=== PATIENT | female | born 1955 | race Caucasian/White ===

== ENCOUNTER 2024-02-08 08:50 | Emergency (ER) | payer MEDICARE, OTHER, SELFPAY ==
[2024-02-08 09:01] VITALS: BP 123/97
[2024-02-08 09:10] VITALS: BP 144/88
--- NOTE | 2024-02-08 09:19 | ED.GENMED ---
History of Present Illness
General
Chief Complaint: Heart Rate Problem
Time Seen by Provider: 02/08/24 09:06
Travel History
Have you had any contact with someone who has COVID-19?: No
Do you have any symptoms of coronavirus? Fever > 100 degrees, chills, cough, shortness of breath, sore throat, loss of taste or smell, muscle aches, or headache?: No
History of Present Illness
History of Present Illness:
68-year-old female with history of paroxysmal atrial fibrillation, hypertension, hyperlipidemia, mitral regurgitation, [id number] diabetes presents to the emergency department for evaluation of palpitations beginning last night and
persisted through to this morning. She developed mild chest pressure and shortness of breath prompted her to come to the emergency department today. She wears an Apple Watch that notified her she is in atrial fibrillation. She does note having
frequent heart palpitations that are quite short-lived, past bout of A-fib was greater than 2 years ago. She is not currently anticoagulated. No recent fevers or chills. Currently undergoing treatment for lumbar degenerative disc disease and
received an epidural injection last week.
Past History
Past History
ED Past Medical History: Asthma, GERD and Psychiatric (depr)
ED Past Surgical History: Other (knee)
Social History
Tobacco: Non-smoker
Personal:
Living: with family
Employment: Employed
Review of Systems
Review of Systems
Allergies reviewed?: Yes
All Other Systems: ROS reviewed and negative except as documented in HPI and ROS
Phy Exam
Physical Exam
Physical Exam:
GEN: Well appearing, NAD, WDWN
Eyes: PERRLA, EOMs intact, no scleral icterus
HENT: NCAT, oral mucosa moist
Lungs: CTAB, no wheezes, rales, rhonchi, normal chest wall excursion
Cardiac: R tachycardic and irregular, no obvious murmur
Neuro: AO x 3
MSK: No gross deformity or ecchymosis. No edema. No digital clubbing
Skin: No rashes, petechiae. Normal color, no pallor or jaundice.
Psych: Calm, cooperative, proper hygiene
Course
Orders/Labs/Results
Orders:
Orders
02/08/24 08:53
EKG [Electrocardiogram (*1)] Urgent
Reason for Study: Palpitations
02/08/24 08:54
EKG- Treatment ONCE
02/08/24 09:15
0.9% Sodium Chloride 1000 ml [Nss] 1,000 ml IV BOLUS
Diltiazem 125 mg/125 ml Nss [Cardizem] 125 mg in 125 ml IV PER PROTOCOL
Initial dose in mg/hr, then titrate:: 5
Titrate to keep:: Heart rate 80-100 bpm
Titrate by mg/hr:: 5 mg/hr
Frequency of titrations (minutes):: 15
Maximum dose in mg/hr:: 15
Diltiazem HCl [Cardizem] 20 mg IV NOW STA
02/08/24 09:16
CR Chest Portable - 1 View Urgent
Comment:
Reason For Exam: SOB
Reason Study Needs to be Portable: Other
02/08/24 09:30
Complete Blood Count/With Diff Urgent
Comprehensive Metabolic Panel Urgent
Magnesium Urgent
TSH Urgent
Comment: ADD ON
02/08/24 09:54
Magnesium Sulfate 2 Gram/50 ml [Magnesium Sulfate] 2 gram in 50 ml IV NOW
02/08/24 11:00
Diltiazem [Cardizem] 30 mg PO NOW STA
02/08/24 11:10
Add On- LAB Urgent
Tests Added?: TSH
Abnormal Lab Results
02/08/24
09:30
RDW 15.9 H %
(11.5-14.5)
MPV 11.2 H fL
(7.4-10.4)
Absolute Monos (auto) 0.7 H 10^3/uL
(0.1-0.6)
Chloride 108 H mmol/L
(98-107)
BUN 25 H mg/dl
(7-17)
Glucose 115 H mg/dl
(70-99)
02/08/24 09:30
02/08/24 09:30
Vital Signs
Initial and Last Documented VS:
Initial Vital Signs
Temp Pulse Resp BP Pulse Ox
97.9 F 138 20 123/97 97
02/08/24 09:01 02/08/24 09:01 02/08/24 09:01 02/08/24 09:01 02/08/24 09:01
Last Documented Vital Signs
Temp Pulse Resp BP Pulse Ox
97.9 F 74 16 112/75 97
02/08/24 09:01 02/08/24 12:45 02/08/24 12:45 02/08/24 12:10 02/08/24 12:45
MDM/Problems Addressed
MDM/Problems Addressed:
Patient's rapid atrial fibrillation was well-controlled with IV diltiazem. She was maintained on the diltiazem infusion for several hours without converting to normal sinus rhythm. She was given an oral dose of short acting diltiazem in the hopes
that this would provide a rate control bridge until she can start controlled-release diltiazem later today. She has no clinical signs or symptoms of heart failure or acute coronary syndrome. Patient will be managed with rate control
anticoagulants. She did epidural to the lumbar spine earlier in the week however this is more than 48 hours thus I feel it is prudent to start this patient on anticoagulants. Advise close cardiology follow-up
Comment
Comment:
Initial EKG independently interpreted by me shows a rapid atrial fibrillation at a rate of 132, QTc of 429
*Critical Care Note
Total Time (30-74mins, 75-104mins- exclusive of procedures): Not Applicable
ED Attending Note
-
Portions of this chart may have been created with voice recognition software.� Occasional wrong word or��sound alike� substitutions may have occurred due to the inherent limitations of voice recognition software.
Discharge Plan
Departure
Patient Disposition: Home (Routine Discharge)
Date of Disposition: 02/08/24
Time of Disposition: 12:42
Patient with high blood pressure during this ER visit?: No
Discharge Problem:
Atrial fibrillation with RVR
Instructions: Atrial Fibrillation (DC), Apixaban
Prescriptions:
New
diltiazem HCl 180 mg capsule,extended release 24 hr
180 mg PO DAILY Qty: 30 0RF
Eliquis 5 mg tablet
5 mg PO BID Qty: 60 0RF
No Action
atorvastatin 40 MG tablet
40 mg PO DAILY
aspirin 81 MG tablet,delayed release (DR/EC)
81 mg PO DAILY
lisinopril 10 MG tablet
10 mg PO DAILY
omeprazole 20 MG capsule,delayed release(DR/EC)
20 mg PO DAILY
fluticasone propionate [Flovent HFA] 1 PUFF HFA aerosol inhaler
1 puff inhalation R BID PRN (Reason: difficulty breathing)
escitalopram oxalate 10 MG tablet
10 mg PO DAILY
levalbuterol HCl 1.25 MG/3 ML solution for nebulization
1.25 mg IH Q8H PRN (Reason: difficulty breathing)
prednisone 50 mg tablet
50 mg PO DAILY Qty: 4 0RF
Referrals:
Peterson Pickard DO [Active] -
Kevon Mays DO [Family Provider] -
Activity Restrictions/Additional Instructions:
Begin both the Eliquis and the diltiazem tonight
Follow up with your cardioglist within 1-2 weeks
Interventions
Interventions:
*Risk Screen - Suicide Last Done: 02/08/24 09:33
*General Assessment Last Done: 02/08/24 09:33
*Neglect/Abuse Screening Last Done: 02/08/24 09:33
ED- Fall Risk Assessment Last Done: 02/08/24 13:03
*ED COVID-19 Vaccine History Last Done: 02/08/24 09:01
*Nursing Disposition Last Done: 02/08/24 13:03
ED- Cardiac Assessment Last Done: 02/08/24 09:33
ED- Pulmonary Assessment Last Done: 02/08/24 09:33
Discharge Date and Time
Discharge Date/Time: 02/08/24 13:05
Print Language: NEPALI
[2024-02-08] MEDS: CARDIZEM 20 MG IV (09:24)
[2024-02-08] MEDS: CARDIZEM 125 IV (09:24)
[2024-02-08] MEDS: NSS 1000 IV (09:25)
[2024-02-08 09:33] VITALS: BMI 36.7
[2024-02-08 09:39] LABS: % Basophils 0.5 % (0-2); % Eosinophils 2.1 % (0-6); % Immature Granulocytes 0.4 % (0-0.5); % Lymphocytes 31.1 % (20.5-51.1); % Monocytes 8.8 % (1.7-9.3); % Neutrophils 57.1 % (42.2-75.2); Absolute Eosinophils 0.2 10^3/uL (0-0.7); Absolute Lymphocytes 2.6 10^3/uL (1.2-3.4); Absolute Monocytes 0.7 10^3/uL (0.1-0.6); Absolute Neutrophils 4.8 10^3/uL (1.4-6.5); Hemoglobin 13.4 g/dL (12.0-16.0); Mean Corp Hgb Conc. 33.5 g/dL (33.0-37.0); Mean Corpuscular Hgb 27.7 pg (27.0-31.0); Mean Corpuscular Volume 82.6 fL (81.0-99.0); Mean Platelet Volume 11.2 fL (7.4-10.4); Nucleated Red Blood Cells % 0 %; Platelet Count 258 10^3/uL (130-400); Red Blood Cell Count 4.84 10^6/uL (4.20-5.40); Red Cell Dist. Width 15.9 % (11.5-14.5); White Blood Cell Count 8.4 10^3/uL (4.8-10.8)
[2024-02-08 09:51] LABS: ALT (SGPT) 25 U/L (0-35); AST (SGOT) 17 U/L (14-36); Albumin 4.1 g/dl (3.5-5.0); Alkaline Phosphatase 63 U/L (38-126); Blood Urea Nitrogen 25 mg/dl (7-17); Calcium 9.5 mg/dl (8.4-10.2); Carbon Dioxide 27 mmol/L (22-30); Chloride 108 mmol/L (98-107); Estimated Creatinine Clearance 68 ml/min; Glucose 115 mg/dl (70-99); Magnesium 1.8 mg/dl (1.6-2.3); Potassium 4.1 mmol/L (3.5-5.1); Sodium 143 mmol/L (135-145); Total Bilirubin 0.4 mg/dl (0.2-1.3); Total Protein 6.5 g/dl (6.3-8.2); eGFR > 60.00
[2024-02-08] MEDS: MAGNESIUM SULFATE 50 IV (10:02)
[2024-02-08] MEDS: CARDIZEM 30 MG PO (11:07)
[2024-02-08 12:10] VITALS: BP 112/75
[2024-02-08 12:35] LABS: TSH 3.41 uIU/ml (0.47-4.68)
== END 2024-02-08 13:05 | disposition home or self-care (01) ==
LOC: EMR 08:50
PROVIDERS: Physician Assistant; EMERGENCY PHYSICIAN Emergency Medicine; FAMILY PHYSICIAN Family Medicine
DX: I48.0 Paroxysmal atrial fibrillation (principal); I10 Essential (primary) hypertension; E78.5 Hyperlipidemia, unspecified; I34.0 Nonrheumatic mitral (valve) insufficiency; E11.9 Type 2 diabetes mellitus without complications; K21.9 Gastro-esophageal reflux disease without esophagitis; J45.909 Unspecified asthma, uncomplicated; M51.36 Other intervertebral disc degeneration, lumbar region; Z79.01 Long term (current) use of anticoagulants
CPT/HCPCS: 99284; 96374; 96375; 96361; 71045; 80053; 83735; 84443; 85025; 93005

== ENCOUNTER → 2024-02-20 10:01 | Outpatient (REF) | payer MEDICARE, OTHER, SELFPAY | LOC: RCS 10:01 | PROVIDERS: ATTENDING PHYSICIAN Internal Medicine Cardiovascular Disease; FAMILY PHYSICIAN Family Medicine | DX: I48.0 Paroxysmal atrial fibrillation (principal) | CPT/HCPCS: 93005 ==

== ENCOUNTER → 2024-04-10 11:06 | Outpatient (REF) | payer MEDICARE, OTHER, SELFPAY | LOC: HWRCS 11:06 | PROVIDERS: ATTENDING PHYSICIAN Internal Medicine Cardiovascular Disease; FAMILY PHYSICIAN Family Medicine | DX: I34.0 Nonrheumatic mitral (valve) insufficiency (principal) | CPT/HCPCS: 93306 ==

== ENCOUNTER 2024-05-04 06:04 | Day surgery (SDC) | payer MEDICARE, OTHER, SELFPAY ==
[2024-05-04] VITALS (22 sets, daily range): BP systolic 99–117; BP diastolic 57–78; BMI 34.2
[2024-05-04 06:50] LABS: Glucose - Point of Care 119 mg/dl (70-99)
[2024-05-04 09:30] LABS: ACT-LR - POC 332 Seconds (116-155)
[2024-05-04 09:50] LABS: ACT-LR - POC 303 Seconds (116-155)
[2024-05-04 10:11] LABS: ACT-LR - POC 382 Seconds (116-155)
[2024-05-04 10:42] LABS: ACT-LR - POC 321 Seconds (116-155)
--- NOTE | 2024-05-04 10:53 | ITS.CL.ABL ---
Farm Equipment Service Technician - Ablation
Ablation
Procedure Report:
AFIB ablation:
Ms. Loo is a very pleasant 68 yr old woman with symptomatic paroxysmal AF and atrial flutters failed DCCV and diltiazem, Carvedilol presented today to the EP lab for atrial fibrillation ablation.
Date of the Procedure:
05/04/2024
Indications:
Paroxysmal atrial fibrillation and atrial flutter
Pre-Operative Diagnosis:
Paroxysmal atrial fibrillation and atrial flutter
Post-Operative Diagnosis:
Paroxysmal atrial fibrillation and atrial flutter
Procedure Performed:
Atrial fibrillation ablation with Pulsed-Field approach for pulmonary vein isolation
Posterior wall isolation
Atypical atrial flutter, roof dependent with roofline formation
Performing Physician:
Bertin Nash MD
Assistants:
EP staff
Anesthesia:
See anesthesia records
Detailed Description of the Procedure:
Written informed consent was obtained from the patient after a full explanation of the risks and benefits of the procedure including the risks of sedation and anesthesia.
The patient was brought to the electrophysiology laboratory in stable condition in fasting state. Continuous electrocardiographic and hemodynamic monitoring was initiated.
The initial rhythm was normal sinus rhythm
Transesophageal echocardiogram was done by Dr. Corey. Please see separate report
The procedure site was meticulously prepared with surgical scrub and allowed to dry with no pooling. Sterile draping was applied to cover the procedure site. The image intensifier was draped with sterile bag and positioned over the patient. After
infusion of local anesthetic, vascular access was obtained under ultrasound guidance and sheaths were placed over guide wire as detailed below.
Sheath and Catheter Placement:
The following catheters / sheaths were placed
Sheaths:
��������� 15Fr steerable sheath (FlexCath Cross�, [employer]) in right femoral vein in right femoral vein
��������� 9Fr in right femoral vein
��������� 7Fr in right femoral vein
Catheters:
��������� EMILY HD Grid mapping catheter � at locations of RA, LA
��������� PulseSelect� PFA catheter
��������� ICE catheter -AcuNav - at locations of RA, SVC, and RV.
��������� Decapolar Bard catheter in RA and CS
Intracardiac ECHO:
An 8-Slovak AcuNav intracardiac ECHO (ICE) probe was advanced through the 9-Slovak sheath in the right femoral vein into the right atrium under fluoroscopic and ICE ultrasound image guidance and a baseline ECHO study was performed. The left atrial
size was dilated. There was moderate tricuspid regurgitation. The aortic valve was grossly normal. There was normal left ventricular systolic functions. There is no pericardial effusion. Of note there is double atrial septum identified. The atrial
chambers but rotated. All the four veins were identified and has flow identified.
During the procedure, ICE was used for monitoring of complications, guidance of trans-septal puncture, monitor the catheter position and tracking ablation lesions. No change in the pericardial space noted throughout the procedure.
Trans-septal Puncture:
Heparin was initiated and infused to maintain appropriate ACT. A J-tipped guidewire was advanced through the 8-Slovak sheath in the right femoral vein into the superior vena cava under fluoroscopic and ICE guidance. The 8-Slovak sheath was exchanged
for a FlexCath Cross sheath which was advanced into the superior vena cava. An MyClean transseptal access system was utilized to perform the trans-septal puncture. The apparatus was withdrawn until it was in contact with the fossa ovalis. The
position was adjusted based on fluoroscopy and ultrasound images from ICE. Under fluoroscopic, hemodynamic and ICE ultrasound guidance, left atrium was cannulated by advancing the needle. Once atrial septum was cannulated, the needle was pulled back
and a guide wire was advanced through the needle into the left atrium. The guide wire was advanced into the left superior pulmonary vein. Both the sheath and the dilator was advanced into the left atrium. The dilator with the needle was withdrawn.
Blood was aspirated from the FlexCath cross sheath and arterial blood confirmed. The sheath was flushed. Saline injection noted into the left atrium on ICE. The mapping catheter was advanced in the Agilis sheath into the left pulmonary vein. Left
atrial pressure was measured.
3D Electroanatomic Mapping:
Using the HD Grid catheter advanced through sheath into the left atrium, an electroanatomic map (EAM) of the left atrium was created using [employer] EMILY mapping system. The map was used for localization of catheter position and tacking of ablation
lesions. The EAM of the left atrium showed 4 pulmonary veins with two left sided and two right sided veins electrically connected to the body the LA. The posterior and anterior haro had some healthy areas with patchy scar all over the LA.
The LA was dilated in size.
Following the EAM, preparation were made for ablation. The neuromuscular paralysis was reversed.
Ablation:
Ablation # 1: Pulmonary vein Isolation:
Using PulseSelect� pulsed field ablation system, pulmonary vein isolation was achieved. First the ablation catheter was placed in the LSPV and ostial ablation lesions were performed in a counter clock cornejo approach all around the PV ostium
circumferentially. Then the catheter was placed on the antral location and multiple ablation lesions were placed circumferentially on the antrum of the vein.
In the similar fashion, the LIPV were isolated.
Then the catheter was moved to right sided veins. The ostial and antral ablations were placed as noted above.
Ablation #2: Atypical atrial flutter ablation.
With pulmonary vein isolated, patient spontaneously went into atrial flutter. Patient is atrial flutter was 250 ms. The right atrial signal was later than the left atrium. The left atrial signal was noted to be in the posterior wall and the anterior
wall.
Using the pulseselect pulsed field ablation, a series of ablations were placed on the roofline. The flutter terminated into normal sinus rhythm.
Ablation # 3: Posterior wall isolation:
Patient had recurrent atrial fibrillation. The veins were mapped and had no signal. Using the pulsed field ablation catheter, the catheter was placed on the posterior wall and moved around the posterior wall to have adequate contact and ablations
were placed isolating the posterior wall.
Post ablation Electroanatomic mapping:
Once ablation was completed, the EAM of the LA was done again in sinus rhythm with excellent demarcation of LA myocardium and isolated antral tissue. There was dissociated signals were noted in the veins as well.
EPS and Confirmation of the PVI and bidirectional block:
Following achievement of entrance block at the pulmonary veins, pacing from the HD catheter in each of the four veins at 10 milliamps for 2 milliseconds showed entrance and exit block. All PVI were rechecked at the end of the case and remained
isolated with dissociated and local capture with pacing. Entrance and exit block were demonstrated in all veins.
Procedure End
ICE study was done again that showed no epicardial accumulation. No complications noted.
Following the completion of the EP study, catheters were removed. Protamine 30 mg was given at the end of the procedure and ACT was checked repeatedly. The sheaths were removed and hemostasis achieved with manual compression after acceptable ACT is
achieved.
Left atrial Pressure:
Pre-Procedure: Mean LA pressure was 5mmHg
Post-Procedure: Mean LA pressure was 5mmHg
Post-Procedure: Mean LR pressure was 2mmHg
Estimated Blood loss:
<10 cc
Specimens Removed:
None.
Implants / Devices:
None
Urine output:
None
Packs / Drains/ Tubes:
None
Instrument / Sponge Count Correct:
Yes
Complications of the Procedure:
None
Condition of Patient at Time of Transfer:
Hemodynamically stable with no neurological or vascular compromise.
Summary:
Successful atrial fibrillation ablation with Pulsed Field approach for pulmonary vein isolation, posterior wall isolation, roofline flutter ablation
Figures from the Procedure:
Figure 1: The electroanatomic mapping (EAM) of the left atrium with bipolar voltage (purple indicates normal electrical activity with grover as no myocardial muscle electric activity indicating a line of block or scar.
[2024-05-04 11:29] LABS: Glucose - Point of Care 142 mg/dl (70-99)
[2024-05-04] MEDS: ANESTHETIC LOZENGE 1 LOZENGE PO (12:06)
--- NOTE | 2024-05-04 14:53 | PTCARENOTE ---
Dr Nash at pt bedside speaking to pt.
--- NOTE | 2024-05-04 15:20 | W.PN.UPDATE ---
Update Note
Progress Note Update
Pt seen post PFA. Preprocedural MAURO completed with no thrombus noted. Right FV with manual compression, no ht/bleeding. OOB ambulating. Post EKG NSR 70s, no acute changes. Resume eliquis tonight. Continue other meds as before. Followup at [facility] in 2
weeks as scheduled. Home later today if groin site/tele remain stable.
== END 2024-05-04 15:45 | disposition home or self-care (01) ==
LOC: CATH 06:04
PROVIDERS: ATTENDING PHYSICIAN Internal Medicine Cardiovascular Disease; FAMILY PHYSICIAN Family Medicine; OTHER PHYSICIAN Internal Medicine Cardiovascular Disease
DX: I48.0 Paroxysmal atrial fibrillation (principal); I48.92 Unspecified atrial flutter; I47.10 Supraventricular tachycardia, unspecified; I34.0 Nonrheumatic mitral (valve) insufficiency; J38.5 Laryngeal spasm; E66.9 Obesity, unspecified; M19.90 Unspecified osteoarthritis, unspecified site; J45.909 Unspecified asthma, uncomplicated; E78.5 Hyperlipidemia, unspecified; Z87.891 Personal history of nicotine dependence; K21.9 Gastro-esophageal reflux disease without esophagitis; I10 Essential (primary) hypertension; E11.9 Type 2 diabetes mellitus without complications; Z79.84 Long term (current) use of oral hypoglycemic drugs; F32.A Depression, unspecified; F41.9 Anxiety disorder, unspecified; J45.40 Moderate persistent asthma, uncomplicated; Z79.82 Long term (current) use of aspirin; I48.4 Atypical atrial flutter; Z79.899 Other long term (current) drug therapy; Z79.85 Long-term (current) use of injectable non-insulin antidiabetic drugs; Z86.16 Personal history of COVID-19; Z79.01 Long term (current) use of anticoagulants
CPT/HCPCS: 93312; 93320; 93325; C1732; C1894; C1730; C1733; C1769; C1759; C1892; 76937; 82962; 85347; 86900; 86901; 93005; 93655; 93656; 93657

== ENCOUNTER → 2024-09-01 11:06 | Outpatient (REF) | payer MEDICARE, OTHER, SELFPAY | LOC: WDC 11:06 | PROVIDERS: ATTENDING PHYSICIAN Family Medicine | DX: Z12.31 Encounter for screening mammogram for malignant neoplasm of breast (principal) | CPT/HCPCS: 77063; 77067 ==

== ENCOUNTER 2024-10-28 12:26 | Emergency (ER) | payer MEDICARE, OTHER, SELFPAY ==
[2024-10-28 12:29] VITALS: BP 132/72
--- NOTE | 2024-10-28 13:35 | ED.GENMED ---
History of Present Illness
General
Chief Complaint: Fall
Time Seen by Provider: 10/28/24 12:57
History of Present Illness
History of Present Illness:
69-year-old female presents the emergency department for evaluation of left chest wall pain as well as left wrist and hand pain after a ground-level fall today, states her left hand was braced against her chest when she fell. No head injury, denies
headache or neck pain. She does take Eliquis
Past History
Past History
ED Past Medical History: Asthma, GERD and Psychiatric (depr)
ED Past Surgical History: Other (knee)
Social History
Tobacco: Non-smoker
Personal:
Living: with family
Employment: Employed
Review of Systems
Review of Systems
Allergies reviewed?: Yes
All Other Systems: ROS reviewed and negative except as documented in HPI and ROS
Phy Exam
Physical Exam
Physical Exam:
GEN: Well appearing, NAD, WDWN
HEENT: Oral mucosa moist, no scleral icterus
Cardiac: Regular rate
Lung: No respiratory distress, no tachypnea
MSK: No gross deformity or injuries, mild ecchymosis to the left ulnar hand, no wrist deformities. Chest wall palpation just inferior to the left breast elicits mild pain but no gross deformities or ecchymosis are noted
Skin: Good color, no pallor or jaundice, no rashes
Neuro: AO x3, cranial nerves II through XII grossly intact, moves all extremities freely
Psych: Calm, cooperative
Course
Orders/Labs/Results
Orders:
Orders
10/28/24 12:32
CR Hand - Left Min 3 Views Urgent
Comment:
Reason For Exam: bruising, pain
CR Wrist - Left Min 3 Views Urgent
Comment:
Reason For Exam: pain
Ribs, Left 3 View W/PA Chest CR [CR Ribs-left 3 Vw W/pa Chest] Urgent
Comment:
Reason For Exam: pain, tenderness
Vital Signs
Initial and Last Documented VS:
Initial Vital Signs
Temp Pulse Resp BP Pulse Ox
97.7 F 52 18 132/72 100
10/28/24 12:29 10/28/24 12:29 10/28/24 12:29 10/28/24 12:29 10/28/24 12:29
Last Documented Vital Signs
Temp Pulse Resp BP Pulse Ox
97.7 F 52 18 132/72 100
10/28/24 12:29 10/28/24 12:29 10/28/24 12:29 10/28/24 12:29 10/28/24 12:29
MDM/Problems Addressed
MDM/Problems Addressed:
Imaging is grossly unremarkable, no evidence for fracture. There was no head injury and sHe has no neurologic symptoms at this time warranting neuroimaging, do not suspect intracranial hemorrhage
*Critical Care Note
Total Time (30-74mins, 75-104mins- exclusive of procedures): Not Applicable
ED Attending Note
-
Portions of this chart may have been created with voice recognition software.� Occasional wrong word or��sound alike� substitutions may have occurred due to the inherent limitations of voice recognition software.
Discharge Plan
Departure
Patient Disposition: Home (Routine Discharge)
Date of Disposition: 10/28/24
Time of Disposition: 13:35
Patient with high blood pressure during this ER visit?: No
Discharge Problem:
Sprain of hand, left, Contusion of left chest wall
Instructions: Rib fracture or bruised rib - ED discharge instructions
Prescriptions:
New
methocarbamol 500 mg tablet
500 - 1,000 mg PO TID PRN (Reason: pain) Qty: 20 0RF
No Action
atorvastatin 40 MG tablet
40 mg PO DAILY
aspirin 81 MG tablet,delayed release (DR/EC)
81 mg PO DAILY
lisinopril 10 MG tablet
10 mg PO DAILY
omeprazole 20 MG capsule,delayed release(DR/EC)
20 mg PO DAILY
escitalopram oxalate 10 MG tablet
10 mg PO DAILY
Eliquis 5 mg tablet
5 mg PO BID Qty: 60 0RF
metformin 500 mg Tablet
500 mg PO BID
acetaminophen 500 mg Tablet
1,000 mg PO Q6H PRN (Reason: pain)
cholecalciferol (vitamin D3) [Vitamin D3] 25 mcg (1,000 unit) Capsule
25 mcg PO DAILY
Mounjaro 5 mg/0.5 mL Pen Injector
5 mg SC QWEEK
carvedilol 6.25 mg Tablet
6.25 mg PO BID
levalbuterol HCl 1.25 mg/3 mL Solution For Nebulization
1.25 mg INHALATION Q8HPRN PRN (Reason: sob)
diltiazem HCl [Matzim LA] 180 mg Tablet Extended Release 24 Hr
180 mg PO DAILY
Multivitamin Women 50 Plus 8 mg iron-400 mcg-50 mcg Tablet
1 tab PO DAILY
fluticasone propionate
2 puff inhalation [id number] PRN (Reason: sob)
Referrals:
Kevon Mays, [Family Provider] -
Interventions
Interventions:
*Risk Screen - Suicide Last Done: 10/28/24 12:29
*General Assessment Last Done: 10/28/24 13:26
*Neglect/Abuse Screening Last Done: 10/28/24 13:26
ED- Fall Risk Assessment Last Done: 10/28/24 13:41
*ED COVID-19 Vaccine History Last Done: 10/28/24 13:26
*Nursing Disposition Last Done: 10/28/24 13:41
ED-Musculoskeletal Assessment Last Done: 10/28/24 13:26
ED- Neurological Assessment Last Done: 10/28/24 13:26
ED-Skin Assessment Last Done: 10/28/24 13:26
Discharge Date and Time
Discharge Date/Time: 10/28/24 13:50
Print Language: YAKUT
== END 2024-10-28 13:50 | disposition home or self-care (01) ==
LOC: EMR 12:26
PROVIDERS: EMERGENCY PHYSICIAN Emergency Medicine; FAMILY PHYSICIAN Family Medicine
DX: S63.92XA Sprain of unspecified part of left wrist and hand, initial encounter (principal); S20.212A Contusion of left front wall of thorax, initial encounter; W19.XXXA Unspecified fall, initial encounter; J45.909 Unspecified asthma, uncomplicated; K21.9 Gastro-esophageal reflux disease without esophagitis; M41.9 Scoliosis, unspecified
CPT/HCPCS: 99283; 71101; 73110; 73130

== ENCOUNTER → 2025-09-01 10:48 | Outpatient (REF) | payer MEDICARE, OTHER, SELFPAY | LOC: WDC 10:48 | PROVIDERS: ATTENDING PHYSICIAN Family Medicine | DX: Z12.31 Encounter for screening mammogram for malignant neoplasm of breast (principal) | CPT/HCPCS: 77063; 77067 ==